=== PATIENT | female | born 1975 | race Two or more races ===

== ENCOUNTER 2017-06-08 16:36 | Inpatient (IN) | payer MEDICAID ==
[~2017-06-08] VITALS: Ht 163.8 cm; Wt 70.5 kg
--- NOTE | ~2017-06-08 | CATH ---
Cardiac Diagnostic Report Demographics Patient Name ARMIN Mariee Gender Female Date of 1975 Age 41 year(s) Patient Number [id number] Date of Study 06/08/2017 Visit Number [id number] Room Number G6227 [place] [id number] Ht 162.56 cm Wt 72.58 kg Referring Efstratiou Primary Physician Physician Terese Schaefer MD Performing Efstratiou Secondary Physician Physician Terese Schaefer MD Diagnostic Efstratiou Assisting Physician Physician Terese Schaefer MD Interventional Physician Eap Specialist Physician Findings and Conclusions Diagnostic Findings and Conclusion non critical 3 vessel disease Diagnostic Recommendations medical management for cardiomyopathy diagnosed by echocardiogram Procedure Description The patient was brought to the diagnostic cardiac catheterization-EP laboratory in the fasting, non-sedated state. Informed consent was obtained in the written and verbal form after the risks and benefits were explained. The patient had no further questions and agreed to proceed. The planned puncture-incision site(s) were shaved and prepped with ChloraPrep and draped in the usual sterile manner. Conscious sedation, supplemental oxygen, and pain control medications were delivered by a registered nurse under physician guidance. Surface ECG rhythm, blood pressure measurement, and pulse oximetry were monitored throughout the procedure. Arterial access. The access site was infiltrated with lidocaine. The vessel was entered with the Seldinger technique. A sheath was advanced into the vessel and used for catheter placement. Selective left coronary angiography. A catheter was advanced into the left coronary vessel ostium under Fluoroscopic guidance. Contrast was injected by hand. Images were obtained in multiple projections. Selective right coronary angiography. A catheter was advanced into the right coronary vessel ostium under fluoroscopic guidance. Contrast was injected by hand. Images were obtained in multiple projections. Left heart catheterization. A catheter was advanced across the aortic valve to the left ventricle under fluoroscopic guidance. Resting hemodynamics were obtained. Arterial artery hemostasis was achieved. The patient was transferred to a regular nursing floor via cart accompanied by a nurse. The patient left the laboratory in stable condition. Diagnostic Cath Status: Emergency Procedure Procedure Type Diagnostic procedure:Angiography:, Coronary Angios w/[facility] Indications: Chest pain. The procedure was explained in detail to the patient. Risks, complications and alternative treatments were reviewed. Written consent was obtained. Medications Reviewed with Patient prior to Procedure. Angiographic Findings Dominance: Right Cardiac Arteries and Lesion Findings LMCA: Abnormal. LAD: Abnormal.20% ostial Diag 20% ostial Lesion on Prox LAD: Ostial.20% stenosis . Lesion on 1st Diag: Ostial.20% stenosis . LCx: Abnormal.20% ostial 20% distal OM patent Lesion on Prox CX: Ostial.20% stenosis . Lesion on Dist CX: Distal subsection.20% stenosis . RCA: Abnormal.20% mid Lesion on Prox RCA: Mid subsection.20% stenosis . Coronary Tree Procedure Data Procedure Date Date: 06/08/2017Start: 08:48 PM Entry Locations - Retrograde Percutaneous access was performed through the Right Radial artery (Primary location). A 6 Fr sheath was inserted. Hemostasis was successfully obtained using Mechanical Compression. Closure Comments: 10 cc air in r band by Carla. Procedure Medications Order and Administration + + +-------+-------+ !Time !Medication !Dosage !Route ! + + +-------+-------+ !06/08/2017 !Fentanyl !50 mcg !I.V. ! !08:47 PM ! ! ! ! + + +-------+-------+ !06/08/2017 !Versed !1 mg !I.V. ! !08:47 PM ! ! ! ! + + +-------+-------+ !06/08/2017 !PAE Radial Cocktail: Heparin 5000 units, ! !I.A. ! !08:52 PM !Nitroglycerin 200mcg, Verapamil 3 mg ! ! ! ! !(ACC_3) ! ! ! + + +-------+-------+ Devices Used - A6 Fr. BS JR 4 Diag. Catheterwas used for:Right coronary angiography. - A6 Fr. BS JL 3.5 Diag. Catheterwas used for:Left coronary angiography. Contrast Material - Isovue 78003 ml Fluoroscopy Time: Diagnostic: 1:54 minutes. Total: 1:54 minutes. Fluoroscopy Dose: Diagnostic: 342 mGy. Total: 342 mGy. Estimated Blood Loss: 10 ml. Medical History Allergies - No known allergies. Risk Factors The patient risk factors include:physical activity, last creatinine: 1.1 mg/dl, creatinine clearance: 77.11 ml/min and Current/Recent(w/in 1 year) tobacco use. Admission Data Admission Date: 06/08/2017 Admission Time: 08:10 PM Admit Source: Emergency department Insurance Payors: None. Clinical Evaluation Leading to Procedure - The patient's CAD presentation was assessed as: Non-STEMI. - The patient's anginal syndrome during the past two weeks was assessed as: Class IV according to the [place] Cardiovascular Society Classification System (CCS). - The patient has been in a state of heart failure within the past two weeks. - The patient's heart failure status was assessed as NYHA Class III, with CHF symptoms of CHAPMAN. - The reason for the patient's laborer visit is evaluation of cardiomyopathy and/or evaluation of left ventricular systolic dysfunction. Snapshots Hemodynamics Condition: Rest O2 Consumption: Estimated: 206.15Heart Rate: 108 bpm Pressures (mmHg) +-----+ + !Site !Pressure ! +-----+ + !LV !119/16 ,22 ! +-----+ + !LV !118/15 ,21 ! +-----+ + !AO !116/90 (102) ! +-----+ + !LV !117/16 ,28 ! +-----+ + !AO !115/87 (101) ! +-----+ + Valve Gradients and Areas + +---------+---------+---------+ +---------+ + !Valve !Peak !Mean !Area !Index !Flow !Source ! + +---------+---------+---------+ +---------+ + !Aortic !2 !0 ! ! ! ! ! + +---------+---------+---------+ +---------+ + !Aortic !2 !0 ! ! ! ! ! + +---------+---------+---------+ +---------+ + Shunts Oxygen Values O2 Capacity 194.48 O2 Consumption 206.15 Signatures dtt: Jony Duque dtd: 06/08/178 Physician Self Edit
--- NOTE | ~2017-06-08 | DS ---
PATIENT'S NAME: LIS FUNEZ [facility] AGE: 41 Y [address] ROOM: [address] [address] LOCATION: [facility] ADMIT DATE: 06/08/2017 Discharge Summary DISCHARGE DATE: 06/14/2017 FAMILY PHYSICIAN: PHYSICIAN, NO ATTENDING PHYSICIAN: Gwen Fernandes ADMITTING DIAGNOSIS: Chest pain. DISCHARGE DIAGNOSIS: Nonischemic cardiomyopathy. SECONDARY DIAGNOSES: 1. Rectal cancer on chemo and radiation. 2. Tachycardic. 3. Anxiety. 4. Tobacco use. 5. History of multiple illicit drug abuse. PROCEDURE: 1. Echocardiogram that shows 15% to 20% ejection fraction. 2. Coronary angiogram that shows nonobstructive coronary artery disease with 20% lesion. CONSULTATION: Cardiology and Oncologist. HISTORY OF PRESENT ILLNESS: The patient is a 41-year-old female with recently diagnosed rectal carcinoma on chemo radiation. She was started on chemo with 5-FU on Monday, who presents here with chest pain and heart palpitation. The patient was started on 5-FU and chemo radiation for her rectal cancer. The patient follows Dr. Anderson and Dr. Robledo. However, the patient was given some hydration at cancer center earlier today and was noted to have substernal pressure-like chest pain. The patient was sent to emergency room on for further evaluation. In the emergency department, the patient had a CT that was negative for PE. However, troponin was noted to be elevated and the patient was taken to coronary angiogram and had a coronary angiogram done by Dr. Frey. Angiogram was unremarkable. Echo showed ejection fraction 15-20%. HOSPITAL COURSE: The patient was restarted on 5-FU treatment and also continued on core measure nonischemic cardiomyopathy treatment. The patient however was noted to have hypotension secondary to aggressive beta-jamir use. Beta-jamir was discontinued. The patient was given IV fluids with improvement of blood pressure. However, systolic blood pressure was still in the 80s and the 70s. The patient was transferred to ICU, was started on Levophed drip with adequate improvement of her blood pressure. Levophed was weaned off with adequate improvement of blood pressure. The patient continued to be tachycardic. The patient was started initially on digoxin and was given PATIENT'S NAME: LIS FUNEZ [facility] AGE: 41 Y [address] ROOM: [id number] [place], [place] [address] LOCATION: [facility] ADMIT DATE: 06/08/2017 Discharge Summary DISCHARGE DATE: 06/14/2017 FAMILY PHYSICIAN: PHYSICIAN, NO ATTENDING PHYSICIAN: Gwen Fernandes a loading dose of digoxin IV and continued on oral digoxin. During her stay, blood pressure was improved. The patient was restarted on low dose of Coreg 3.125 mg p.o. b.i.d. with adequate heart rate control and blood pressure. The patient was also started on ivabradine 5 mg p.o. b.i.d. The patient during stay also had radiation treatment. Discussion was made with oncologist, Dr. Mcdaniel, if 5-FU as a contributor for nonischemic cardiomyopathy. This to be revaluated by Dr. Anderson as an outpatient. The patient was seen by Physical Therapy and Occupational Therapy. The patient's function improved significantly and was stable on discharge. CONDITION: Stable. DISPOSITION: Home. DISCHARGE MEDICATION: Please see MAR. DISCHARGE INSTRUCTION: If the patient is having chest pain shortness of breath, fever, chills, productive cough, and erythema around PICC line, to go to the emergency department. FOLLOWUP: Follow up with Cardiology, Oncology, radiation oncologist, and primary care physician. PHYSICAL EXAMINATION: VITAL SIGNS: Stable. GENERAL APPEARANCE: The patient is alert and awake, in no acute distress. CHEST: Clear to auscultation bilaterally. HEART: Regular rate and rhythm. No murmurs, rubs, or gallops. ABDOMEN: Soft, nontender, and nondistended. Bowel sounds present. SKIN: Warm to touch. EXTREMITIES: Lower extremity, no edema. Greater than 30 minutes were spent on discharge planning. MD ANAHI RAMIREZ/annita /[id number] d: 06/15/17 1309 t: 06/16/17 1312, DISCHARGE SUMMARY
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
--- NOTE | ~2017-06-08 | ECHO ---
Transthoracic Echocardiography Report (TTE) Demographics Patient Name LIS FUNEZ Date of Study 06/08/2017 Y Patient Number [id number] Visit Number [id number] Date of 1975 Room Number G6399 Gender Female Number Age 41 year(s) Referring Efe Chua Account Administrator Dennise Robins RVT Physician TORRES Jenkins MD Physician Interpreting Neto Gudino Supervisor Central Supply Physician A Supervising Ordering Herb Jenkins MD, MD/MLP Physician Nurse Stress Dispatcher Refinery Conclusions Contractility Score Summary Global Left Ventricular Hypokinesis was noted. Summary The estimated left ventricular ejection fraction is 15-20%. Definity images are 84-101 Mild concentric left ventricular hypertrophy. Mildly reduced right ventricular function. Mild mitral regurgitation by color Doppler. The aortic valve was not well imaged. Mild tricuspid regurgitation by color Doppler. Trivial pulmonic valve regurgitation by color Doppler. Procedure Type of Study TTE procedure:2D Echocardiogram, Echo with Contrast. Procedure Date Date: 06/08/2017 Start: 06:53 PM Study Location: ER Technical Quality: Adequate visualization Indications:Chest pain. Appropriate Use Criteria: 9 Patient Status: STAT HR: 95 bpm BP: 129/92 mmHg Allergies - No known allergies. M-Mode/2D Measurements LV Diastolic Dimension: 4.19 cm LV Systolic Dimension: 3.69 cm LV Septum Diastolic: 1.29 cm LV PW Diastolic: 1.19 cm AO Root Dimension: 2.3 cm Cardiac Output: 3.13 l/min AV Cusp Separation: 2 cm RV Diastolic Dimension: 1.76 cm LVOT: 2 cm LVOT VTI: 10.5 cm RV Base: 2.48 cm LV Stroke volume: 32.97 ml RV Length: 5.4 cm TAPSE: 1.05 cm TDI-S': 13.9 cm/s Doppler Measurements AV Peak Velocity: 1.06 m/s MV Peak E-Wave: 0.89 m/s AV Peak Gradient: 4.49 mmHg AV Mean Gradient: 2 mmHg MV P1/2t: 45 msec LVOT Peak Velocity: 0.57 m/s TR Velocity:2.34 m/s PV Peak Velocity: 0.48 m/s TR Gradient:21.9 mmHg PV Peak Gradient: 0.91 mmHg E' Septal Velocity: 0.12 m/s E' Lateral Velocity: 0.12 m/s Findings Left Ventricle Mild concentric left ventricular hypertrophy. Incompletely studied diastolic function. Right Ventricle Mildly reduced right ventricular function. Left Atrium Normal left atrial size. Right Atrium IVC measures 1.5 cm with partial inspiratory collapse. Mitral Valve Mild mitral regurgitation by color Doppler. Aortic Valve The aortic valve was not well imaged. Tricuspid Valve Mild tricuspid regurgitation by color Doppler. Pulmonic Valve Trivial pulmonic valve regurgitation by color Doppler. Pericardial Effusion No evidence of pericardial effusion. Miscellaneous Visualized portions of the aortic root and ascending aorta appear normal in size. Pleural Effusion No evidence of pleural effusion. Contractility Score LV regional wall motion:(0-Non visualized 1-Normal 2-Hypokinesis 3-Akinesis 4-Dyskinesis 5-Aneurysm) Signature dtt: Jony Duque dtd: 06/08/17 [id number] Physician Self Edit
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
--- NOTE | ~2017-06-08 | ER ---
PATIENT'S NAME: LIS FUNEZ [facility] AGE: 41 Y [address] ROOM: [address] [place], [place] [address] LOCATION: GPCU ADMIT DATE: 06/08/2017 ER/Outpatient Report DISCHARGE DATE: FAMILY PHYSICIAN: PHYSICIAN, NO ATTENDING PHYSICIAN: Jony Duque ADDENDUM TO SOHAM WOODRUFF'S DICTATION: HISTORY OF PRESENT ILLNESS: The patient is a 41-year-old female, who presents to the emergency department today and was initially seen by TORRES Cagle, in conjunction with Dr. Estevez. I was asked to see the patient upon my arrival at shift change. The patient does have anorectal cancer. She is currently undergoing radiation and chemotherapy. The patient did have chest pain. I did see and evaluate the patient. She reports this pain upon my evaluation is in the center of her chest. It is a dull type pain. It started about 3:30 p.m. today. She continues to have pain now 5/10 to 6/10 in severity. Denies any shortness of breath. She did get diaphoretic at 3:30 with initial onset of the pain. Denies any fevers, does have some nausea. No vomiting. No radiation of the pain. Nothing makes it worse. Nothing makes it better. Denies any history of heart catheterization or stress test in the past. The patient did have radiation treatment this morning. She is a long-time smoker 26 years. She does use methamphetamine, last use was a week ago. She also uses marijuana. LABORATORY DATA AND X-RAYS: The patient's EKGs are reviewed by myself. EKG at 1646 hours shows sinus tachycardia with a rate of 121, normal axis, normal intervals. There is some very subtle ST elevation in V5, V6. It is less than 1 mm. Repeat EKG is performed at 1806 hours and 1812 hours, it continues to show the subtle ST elevation. There is some increased size of the T wave. With these EKGs, we did contact Dr. Duque with the Cardiology Service. He has seen and evaluated the patient down here in the emergency department. He has ordered a stat echocardiogram, which does show global hypokinesis with an EF of 20% to 25%. The patient's laboratory analysis is reviewed. D-dimer is elevated at 0.83. CMP is unremarkable except for glucose 252. LFTs are normal. Magnesium is normal. CK and CK-MB are normal. Troponin 0.068. CBC is unremarkable. Coags are normal. Repeat cardiac enzymes: CK is normal, CK-MB is normal, troponin 0.110. CT scan of the chest, PE study is obtained. I have discussed results with the radiologist shows no evidence of PE. Lungs are clear with no acute infiltrate. Two-view chest x-ray shows no acute process. EMERGENCY DEPARTMENT COURSE: The patient was given Lopressor 5 mg. She was also given 4 tabs of aspirin orally. We have discussed the case again with Dr. Duque. He will proceed to the heart catheterization lab for further evaluation of the patient's PATIENT'S NAME: LIS FUNEZ [facility] AGE: 41 Y [address] ROOM: [place] [address] [facility] ADMIT DATE: 06/08/2017 ER/Outpatient Report DISCHARGE DATE: FAMILY PHYSICIAN: PHYSICIAN, NO ATTENDING PHYSICIAN: Jony Duque. We also did discuss the case with Dr. Hernández with the Hospitalist Service and will see the patient as well. DISPOSITION: The patient is admitted under the care of Dr. Duque in stable condition. DO ISRAEL IVERSON/annita /[id number] d: 06/09/17 0001 t: 06/16/17 1110, OUTPATIENT REPORT
--- NOTE | ~2017-06-08 | ER ---
PATIENT'S NAME: LIS FUNEZ [facility] AGE: 41 Y [address] ROOM: [place] [address] LOCATION: GPCU ADMIT DATE: 06/08/2017 ER/Outpatient Report DISCHARGE DATE: FAMILY PHYSICIAN: PHYSICIAN, NO ATTENDING PHYSICIAN: Jony Duque Time of Arrival: 1636 hours. Time of Evaluation: 1638 hours. CHIEF COMPLAINT: Chest pain, fatigue, dizziness. HISTORY OF PRESENT ILLNESS: This is a 41-year-old female, who presents to the ER, who states she started having some chest pain from 3:30 this afternoon. The patient states she has a history of anorectal cancer, in which she is receiving chemotherapy through a PICC line and a radiation treatment. The patient was evaluated at the cancer center today and did receive 2 L of IV fluids. She states when she went home, she took a nap and when she awoke she started having this chest discomfort. She describes her chest pain as a dull aching pain in the center of her chest. It makes her feel nauseated. She has had weakness and diaphoresis with this but no shortness of breath and no vomiting. She states her pain does not radiate anywhere. She states that she has had no fevers at home. She states that she has never had anything like this before in the past. She states that nothing really makes it better and nothing really makes it worse. She states that she generally just does not feel well. ALLERGIES: NO KNOWN ALLERGIES. MEDICATIONS: Please see medication list in nurse's notes. PAST MEDICAL HISTORY: Anorectal cancer, currently receiving radiation, chemotherapy. She has had a cholecystectomy. Her tubes tied. SOCIAL HISTORY: She smokes 5 to 6 cigarettes a day for the past 26 years. She drinks alcohol rarely. Smokes marijuana every other day and has a history of methamphetamine use, last use was one week ago. REVIEW OF SYSTEMS: All systems reviewed and were negative with the exception of those discussed in the HPI. PATIENT'S NAME: LIS FUNEZ [facility] AGE: 41 Y [address] ROOM: [place] [address] LOCATION: GPCU ADMIT DATE: 06/08/2017 ER/Outpatient Report DISCHARGE DATE: FAMILY PHYSICIAN: PHYSICIAN, NO ATTENDING PHYSICIAN: Jony Duque PHYSICAL EXAMINATION: VITAL SIGNS: Height 5 feet 4-1/2 inches stated, weight 73 kg taken, blood pressure is 130/92, pulse 122, respirations 20, temperature 97 degrees tympanically, and saturations 99% on room air. Marilee Coma Score is 15. GENERAL: An alert, slightly anxious appearing 41-year-old female, in mild distress. HEENT: Head: Normocephalic. She does display moist mucous membranes. Eyes: Pupils are equal and reactive to light. NECK: Supple. No lymphadenopathy. LUNGS: Clear to auscultation bilaterally. HEART: Tachycardic, normal rhythm. ABDOMEN: Soft. She has slight tenderness in her lower quadrants with palpation of her abdomen. No guarding. No rebound tenderness. She has good bowel sounds throughout. EXTREMITIES: No clubbing or cyanosis. She has full range of motion of all limbs. NEURO: Cranial nerves 2 through 12 grossly intact. Gait is steady without assistance. SKIN: Warm, dry, and intact. She does have a PICC line placed in her right upper extremity. I did turn the patient's care over to Dr. Jose due to the complexity of the patient. Please see Dr. Jose's dictation for the remainder of the patient's visit. The patient understands and agrees with care. SOHAM WOODRUFF PA-C FOR MD LEONIDES VICENTE/annita /[id number] d: 06/08/17 2311 t: 06/20/17 0650, OUTPATIENT REPORT
[2017-06-08 17:15] LABS: HEMATOCRIT 42.8 % (33.0-46.0); HEMOGLOBIN 14.3 g/dL (10.0-15.0); MCH 30.4 pg (27.0-34.0); MCHC 33.4 gm/dL (32.0-36.5); MCV 90.9 fl (83.0-98.0); MPV 8.8 fl (9.4-12.4); PLATELET COUNT 284 K/uL (150-450); RBC 4.71 M/uL (3.50-5.50); RDW-CV 12.2 % (11.9-14.6); WBC 7.5 K/uL (4.0-11.0)
[2017-06-08 17:27] LABS: INR - (THERAPEUTIC) 0.95 (0.92-1.07); PTT 26 SECONDS (25-32)
[2017-06-08 17:34] LABS: ANION GAP 12.7 (10.0-19.0); CALCIUM 7.9 mg/dL (8.5-10.5); CREATININE 1.1 mg/dL (0.5-1.1); MAGNESIUM 1.9 mg/dL (1.8-2.6); POTASSIUM 3.7 mMol/L (3.7-5.1); TOTAL BILIRUBIN 0.4 mg/dL (0.0-1.5); TOTAL PROTEIN 6.8 g/dL (6.0-8.4)
[2017-06-08 17:45] LABS: ABSOLUTE NEUTROPHIL CT (ANC) 6.9 K/uL (1.8-7.8); BANDED NEUTROPHIL # 0.4 K/uL (0.0-0.1); BANDED NEUTROPHILS % 5 %; LYMPHOCYTE # 0.5 K/uL (0.8-4.0); LYMPHOCYTE % 6 %; MONOCYTE # 0.1 K/uL (0.0-1.0); SEGMENTED NEUTROPHIL # 6.5 K/uL (1.8-7.8); SEGMENTED NEUTROPHIL % 87 %
[2017-06-08] MEDS ORDERED: COMPAZINE10 MG PO (21:45)
[2017-06-08] MEDS ORDERED: [UNRECOGNIZED DRUG - OTHER] (21:47)
--- NOTE | 2017-06-08 22:20 | NUR ---
Patient was feeling sick this afternoon went to ER. Elevated troponin. Patient taken down to prosthetic lab technician. R) radial approach, no interventions needed. Patient arrived to PCU at 2114. R) upper arm PICC present on admission with chemo infusion running for rectal cancer. L) hand IV with NS @ 100ml/hr for 500ml. R) radial site commpressed with band. Patient drowsy on arrival. Patient is oriented x3. Calm and cooperative.
--- NOTE | 2017-06-09 05:49 | NUR ---
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 VSS, HR 100's, SBP 130-150's. On RA. Up SBA. No complaints of pain. R) upper arm PICC in place with chemo medication infusing. R) radial cath site, no intervention, R band removed wtih no complications. Possible home today.
[2017-06-09 07:10] LABS: BASOPHIL % 0.2 %; HEMATOCRIT 42.9 % (33.0-46.0); HEMOGLOBIN 14.8 g/dL (10.0-15.0); IMMATURE GRANULOCYTE % 0.3 %; LYMPHOCYTE # 2.3 K/uL (0.8-4.0); LYMPHOCYTE % 17.5 %; MCH 30.9 pg (27.0-34.0); MCHC 34.5 gm/dL (32.0-36.5); MCV 89.6 fl (83.0-98.0); MONOCYTE # 0.5 K/uL (0.0-1.0); MONOCYTE % 3.7 %; MPV 8.8 fl (9.4-12.4); NEUTROPHIL # (ANC) 10.4 K/uL (1.8-7.8); NEUTROPHIL % 78.3 %; NRBC % 0 /100WBC (0-0.00); RBC 4.79 M/uL (3.50-5.50); RDW-CV 12.4 % (11.9-14.6); WBC 13.3 K/uL (4.0-11.0)
[2017-06-09 07:11] LABS: PLATELET COUNT 367 K/uL (150-450)
[2017-06-09 07:39] LABS: ANION GAP 12.9 (10.0-19.0); CALCIUM 8.6 mg/dL (8.5-10.5); POTASSIUM 3.9 mMol/L (3.7-5.1)
[2017-06-09 10:05] LABS: BARBITURATE NEGATIVE (NEGATIVE); COCAINE NEGATIVE (NEGATIVE); OPIATES NEGATIVE (NEGATIVE)
[2017-06-09 10:12] LABS: AMPHETAMINE NEGATIVE (NEGATIVE)
--- NOTE | 2017-06-09 12:17 | NUR ---
Introduced self and CM to Christopher. Christopher tells me that she lives at home in [place] with her , [place]. She plans on returning home when she is cleared to do so. She isn't established with a PCP but would like to be set up with someone at [facility] if she could. I left a note on her chart to make sure a new patient follow up appt. was made with someone at [facility] was set up for her when she went to dismiss. She was listed as self pay on my sheet, we talked about this and I made sure that she has the financial assistance application. Told her to fill it out upon dismissal. Inquired if she had applied for Medicaid at all. She says that she did, but her makes to much money so she doesn't qualify for it. Updated Angela in the [facility] dept to this so she could follow up with Christopher on this and see if she could help her anymore. Christopher says that her will pick her up when she goes. She manages her own medications at baseline, says that she is only on one for her nausea due to her chemo treatments. Gets it filled at [facility] and will get her new medications filled at [facility] if she needs to. Reports that her works and pays for her medications if she needs them. Christopher [facility] and has just recently started them. Tells me that she will have to do radiation as well down the road. Denies any needs for DME or HHC upon dismissal. Plan is for her to return home when she is ready to do so. No other questions, needs or concerns. Left my name on her whiteboard for any further questions down the road. CM to continue to follow and assist.
--- NOTE | 2017-06-09 14:40 | NUR ---
AT 1330 THE PATIENT HAD GOTTEN UP TO THE BR TO TRY TO HAVE A BM AND BECAME DIZZY AND DIAPHORETIC; SHE WAS RETURNED TO THE RECLINER AND FOUND TO HAVE SBPS IN THE 70S AFTER HER DOSE OF COREG AT 1200. SBPS HAD BEEN 110S-150S AND HR'S 130S T/O THE SHIFT PRIOR TO THIS EPISODE. BS CHECKED AND WAS 171. DR. REID NOTIFIED AND ORDER FOR 300 ML NS BOLUS; DR. MEDINA WAS ALSO NOTIFIED AND CAME TO THE BEDSIDE AND GAVE ADDITIONAL ORDER FOR 200 ML NS BOLUS AND TO KEEP NS WIDE OPEN. AT 1345 MISSY BELTRAN RN CAME UP AND D/C'D THE CHEMO MED 5 F U FROM THE PATIENT'S PICC LINE PER DR. FISHER'S ORDER. A RAPID RESPONSE WAS CALLED AT 1400 D/T SBPS WENT INTO THE 60S AFTER NS BOLUSES INFUSED AND PT HAD DECREASED LOC. ORDER FOR DOPAMINE GTT AT 10 MCG/KG/MIN WAS RECIEVED BY MD AT BEDSIDE. DOPAMINE GTT INCREASED TO 15 MCG/KG/MIN AT 1410 AND TO 20 MCG/KG/MIN AT [address] MEDINA'S VERBAL ORDER AT BEDSIDE. LEVOPHED GTT WAS ALSO STARTED AT 12 MCGS AT BEDSIDE PRIOR TO TX TO THE ICU; SBPS RETURNED TO 90S-110S PRIOR TO TX TO THE ICU. UPDATED THE PATIENT'S MOTHER IN LAW SOFI FUNEZ IN THE ICU WAITING ROOM. REPORT WAS GIVEN TO DIOR CORTES.
[2017-06-09 20:34] LABS: HEMATOCRIT 42.8 % (33.0-46.0); HEMOGLOBIN 14.6 g/dL (10.0-15.0)
--- NOTE | 2017-06-10 05:07 | NUR ---
Significant Event: Patient A/O, more alert tonight, denies pain, numbness or tingling. Restless but cooperative. Remains sinus tachy (120s-140s), Digoxin given x1 dose, no relief. Remains on Levophed gtt, titrated often, see flowsheet for details. Telemetry notified this nurse of a 7 beat run of VT, Dr Hernández also notified, no new orders. Temp of 100.3, Tylenol given. Cooper drains adequate amounts of clear yellow urine. Cardiac prudent diet, poor appetite. Follow up: Titrate Levophed drip off, keeping SBP >90
[2017-06-10 07:39] LABS: BASOPHIL # 0.1 K/uL (0.0-0.2); BASOPHIL % 0.4 %; EOSINOPHIL % 0.1 %; HEMATOCRIT 42.9 % (33.0-46.0); HEMOGLOBIN 14.7 g/dL (10.0-15.0); IMMATURE GRANULOCYTE # 0.1 K/uL (0.0-0.3); IMMATURE GRANULOCYTE % 0.6 %; LYMPHOCYTE # 1.8 K/uL (0.8-4.0); LYMPHOCYTE % 13.9 %; MCH 30.8 pg (27.0-34.0); MCHC 34.3 gm/dL (32.0-36.5); MCV 89.9 fl (83.0-98.0); MONOCYTE # 0.3 K/uL (0.0-1.0); MONOCYTE % 1.9 %; MPV 9.5 fl (9.4-12.4); NEUTROPHIL # (ANC) 10.9 K/uL (1.8-7.8); NEUTROPHIL % 83.1 %; NRBC % 0 /100WBC (0-0.00); PLATELET COUNT 356 K/uL (150-450); RBC 4.77 M/uL (3.50-5.50); RDW-CV 12.1 % (11.9-14.6); WBC 13.1 K/uL (4.0-11.0)
[2017-06-10 07:44] LABS: ALBUMIN 2.9 gm/dL (3.5-5.0); ALK PHOS 64 IU/L (33-138); ALT 27 IU/L (12-78); ANION GAP 10.6 (10.0-19.0); AST 14 IU/L (10-40); BLOOD UREA NITROGEN 14 mg/dL (6-24); CALCIUM 8.2 mg/dL (8.5-10.5); CHLORIDE 107 mMol/L (96-110); CO2 27 mMol/L (22-32); CREATININE 0.8 mg/dL (0.5-1.1); POTASSIUM 3.6 mMol/L (3.7-5.1); SODIUM 141 mMol/L (135-145); TOTAL BILIRUBIN 1.1 mg/dL (0.0-1.5); TOTAL PROTEIN 6.7 g/dL (6.0-8.4)
--- NOTE | 2017-06-10 14:46 | NUR ---
Significant Event: PT ALERT AND ORIENTED X3. HAS BEEN SLEEPY THROUGHOUT THE DAY, BUT AWAKENS EASILY. DENIES ANY PAIN OR CHEST PAIN. ORDER TO KEEP SBP GREATER THAN 90. IV LEVOPHED DRIP CONTINUES; SEE FLOWSHEET FOR TITRATIONS. TACHYCARDIA WITH RATES IN THE LOW 100'S-120'S. MD'S ARE AWARE OF HEARTRATES. AFEBRILE. ON ROOM AIR. ESPINAL PATENT, DRAINING YELLOW URINE. SINGLE LUMEN PICC LINE TO R)UPPER ARM INTACT. FAIR APPETITE; CARDIAC DIET WITH LOW SODIUM. BAG BATH GIVEN THIS AM. TRANSFERS WITH STAND-BY ASSIST. POTASSIUM LEVEL WAS 3.6 THIS AM; 40 MEQ PO KCL GIVEN X1. HAS BEEN UP IN THE CHAIR MOST OF THE SHIFT. Follow up: WEAN LEVOPHED DRIP
--- NOTE | 2017-06-11 02:15 | NUR ---
Significant Event: A&OX3. Equal strength throughout. Up SBA. Pupils equal and reactive. On tele runs ST at times HR 90s to low 110s. On Levo drip paused at 0200. Goal is to keep SBP >90. RA lungs clear. Last BM 06/10. Cardiac diet. Cooper urine light yellow good urine output. Bruising to abdomin from lovenox shots. PICC line single lumen flushes well good blood return. Had some nausea during the night compazine given. Follow up:
[2017-06-11 04:15] LABS: BASOPHIL % 0.4 %; EOSINOPHIL # 0.1 K/uL (0.0-0.5); EOSINOPHIL % 0.7 %; HEMOGLOBIN 15.7 g/dL (10.0-15.0); IMMATURE GRANULOCYTE # 0.1 K/uL (0.0-0.3); IMMATURE GRANULOCYTE % 0.7 %; LYMPHOCYTE # 1.1 K/uL (0.8-4.0); LYMPHOCYTE % 16.7 %; MCH 31.3 pg (27.0-34.0); MCHC 34.9 gm/dL (32.0-36.5); MCV 89.6 fl (83.0-98.0); MONOCYTE # 0.1 K/uL (0.0-1.0); MONOCYTE % 1.6 %; MPV 9.5 fl (9.4-12.4); NEUTROPHIL # (ANC) 5.4 K/uL (1.8-7.8); NEUTROPHIL % 79.9 %; NRBC % 0 /100WBC (0-0.00); PLATELET COUNT 346 K/uL (150-450); RBC 5.02 M/uL (3.50-5.50); RDW-CV 11.9 % (11.9-14.6); WBC 6.7 K/uL (4.0-11.0)
[2017-06-11 04:17] LABS: ALBUMIN 3.1 gm/dL (3.5-5.0); ANION GAP 11.1 (10.0-19.0); CALCIUM 8.7 mg/dL (8.5-10.5); CREATININE 0.9 mg/dL (0.5-1.1); POTASSIUM 4.1 mMol/L (3.7-5.1); TOTAL PROTEIN 7.5 g/dL (6.0-8.4)
[2017-06-11 04:21] LABS: TOTAL BILIRUBIN 0.7 mg/dL (0.0-1.5)
--- NOTE | 2017-06-11 16:55 | NUR ---
Significant Event:PT IS AAOX3. NO C/O NUMBNESS, TINGLING, SOB, OR CHEST PAIN. LUNG SOUNDS ARE CLEAR IN UPPERS AND CLEAR AND DIMINISHED IN LOWER LOBES. SBP 100-120'S. HR 105-120'S. ACTIVE BS. NO BM THIS SHIFT. DOES HAVE SORE ON HER INNER LEFT CHEEK IN HER MOUTH. STARTED MAGIC MOUTHWASH. PICC TO R) UPPER ARM SL'D. UP SBA. SHOWERED TODAY. Follow up:PT ANXIOUS ABOUT HAVING CHEMO. WANTS A DIFFERENT TYPE
--- NOTE | 2017-06-11 23:26 | NUR ---
Significant Event: A&Ox3. Equal strength throughout. Fatigued. Up SBA pt states she is able to move without feeling dizzy at all. On tele runs ST mid 110s to upper 120s has been in 130s but has not sustained 130s long. SBP in 110s and 120s. Complained of some aggitation and anxiety at start of night pt stated she just wasn't able to get comfortable and was just frusterated xanax was given, pt then seemed to be able to rest quitely. RA lungs clear. Last BM 06/10. Cardiac diet. Cooper possibly D/C today. Bruising to abdomin from lovenox shots. Pt has sores in mouth on magic mouthwash 4xs a day. PICC line to R) arm single lumen flushes well with good blood return. Follow up: Radiation and chemo therapy scheduled for today 06/11 pt states she does not want to do more chemo, oil truck driver mentioned that he thought that might be what caused her heart complications. Pt insturcted to talk to Dr. Mcdaniel about it today. Discharge home Monday or Monday.
--- NOTE | 2017-06-12 14:29 | NUR ---
Significant Event:PT IS AAOX3. NO C/O NUMBNESS OR TINGLING. CLEAR TO CLEAR AND DIMINISHED LUNG SOUNDS. ON RA. ACTIVE BS. REMOVED ESPINAL AT 0925. HAS VOIDED SINCE. NO C/O PAIN EXCEPT FOR HER MOUTH SORES WHICH THE MAGIC MOUTH WASH IS HELPING. HAD RADIATION TODAY. Follow up:HOME TOMORROW OR MONDAY
--- NOTE | 2017-06-12 16:20 | NUR ---
1030 During RN huddle this morning DIOR Maxwell tells me that Christopher might have to go home on the medication, Corlanor 5 mg BID upon dismissal and it was a pretty clostly med. so she would like for me to see her about this. I let Alissa know that I would do that this afternoon. I also reviewed the chart and saw that had wrote that Christopher might need a Lifevest upon dismissal as well. I did ask Alissa to call and clarify that she would for sure have to go home with that as she was listed as self pay. Alissa did call and clarify that Christopher would need the Lifevest upon dismissal. Gave Alissa the number for [employer] Rep. Poli Church, to call and have him come up and see Christopher about the Lifevest. Alissa states she will call Poli and have him come up and see Christopher later today or tomorrow. In the meantime, I phoned over to [facility], was told that the Corlanor 5MG BID would be $485.37 for a months supply. I called over to Sue at [facility], [phone], left a VM with her to see if she had any medications coupons for this medication or if she had any way to help out Christopher with the cost of this medication. No call back from her at this point. I went in and talked with Christopher, updated her to all the above, she states that she isn't able to pay for those medications and probably not for the Lifevest either as she isn't working and doens't know if her can pay for it out of pocket either. Let her know that I would keep working on trying to find a cheaper cost to get her medications at and talk with my rug cleaning supervisor Jennifer about the LifeVest issue and then report back to her. She was in agreement with this plan. Christopher did say she would be compliant with the LifeVest if we were able to get the cost covered. Also told her I would talk with [facility] in [facility] to see if there was anything she could look into to try to help with why her Medicaid was denied or see what they could do to try to get it approved. Christopher was fine with this. I did talk with Angela about the above and she was going to look into it. CM to continue to follow and assist.
--- NOTE | 2017-06-13 03:42 | NUR ---
Pt A&Ox4. VSS on RA, SBPs 110s-130s, HRs 90s-low 100s throughout shift. Denies any cardiac symptoms throughout shift. Up with SBA. Voiding sufficiently. Had radiation yesterday. Possible D/C to home today or tomorrow. Cooperative with cares.
[2017-06-13 04:51] LABS: BASOPHIL # 0.1 K/uL (0.0-0.2); BASOPHIL % 1.6 %; EOSINOPHIL # 0.4 K/uL (0.0-0.5); EOSINOPHIL % 8.8 %; HEMATOCRIT 44.4 % (33.0-46.0); IMMATURE GRANULOCYTE # 0.1 K/uL (0.0-0.3); IMMATURE GRANULOCYTE % 1.6 %; LYMPHOCYTE # 1.2 K/uL (0.8-4.0); LYMPHOCYTE % 26.2 %; MCH 30.1 pg (27.0-34.0); MCHC 33.8 gm/dL (32.0-36.5); MONOCYTE # 0.2 K/uL (0.0-1.0); MONOCYTE % 3.6 %; MPV 8.9 fl (9.4-12.4); NEUTROPHIL # (ANC) 2.6 K/uL (1.8-7.8); NEUTROPHIL % 58.2 %; NRBC % 0 /100WBC (0-0.00); PLATELET COUNT 354 K/uL (150-450); RBC 4.99 M/uL (3.50-5.50); RDW-CV 11.9 % (11.9-14.6); WBC 4.4 K/uL (4.0-11.0)
--- NOTE | 2017-06-13 10:48 | NUR ---
PT SCREENED D/T LOS. EST NEEDS: [id number] KCALS, 79-83 GM PROTEIN, 1 ML/KCAL FLUIDS. INTAKE ADEQUATE ON CARDIAC DIET. BMI WNL. NO NURITION-RELATED DIAGNOSIS IDENTIFIED. WILL F/U IN 7-10 DAYS.
--- NOTE | 2017-06-13 12:13 | NUR ---
[facility] with [facility] in [facility] she gave me paperwork for Christopher to fill out so she could help her with her Medicaid application. Took those up to Christopher, had her sign/fill them out. Gave them back to Angela who says she is going to try to get up to see her today. Also gave her Nitin' card as well so she could get ahold of her post dismissal. Talked with Christopher about her Corlanor costs, she says she won't be able to cover them. Told her I would call and get that figured out. In the meantime, I filled out a [employer] form for her and faxed it over to Arina at [facility] so they could try to get that covered for her. Left a copy of this on her chart as well. Christopher says that Poli from [facility] has not come and talked with her yet, but per her RN Vivien, he was going to come up this afternoon. After leaving her room, I called , explained to him that she was self pay and couldn't cover the cost of the Corlanor, he tells me to have [facility] if [facility]. Let him know that this has already been done, but it will take about a month before they can start to help. He says that he will call over to his clinic and talk with his RN to see if he can get some free samples for her to have upon dismissal to get her by for the time being. is out of town today, so he says to call his RN Natty at 2115 later this morning and get the samples from here. Told him I would do this. I later phoned over to Natty, 2115, she says that she has the samples ready to go, has 91 tablets for her to use as a sample to get her by. Let Natty know that I would be over later to pick them up and get them to Christopher. Will follow up with Poli ([facility]) this afternoon and also with my decorating supervisor Jennifer as we will most likely have to cover the cost of it as Christopher won't be able to. CM to continue to follow and assist. All the above was shared with Christopher so she is aware of things. I also made an appt with for 06/19 at 1330 for her so she could est. PCP with him upon dismissal. Left a card for her on her chart for dismissal, also wrote it on her dismissal orders as well.
--- NOTE | 2017-06-13 13:29 | NUR ---
Significant Event: Patient A/O x3. Denies N/T. Follows commands. Able to make needs known. Moves all extremities spontaneously. PERRLA. VSS. HRs 100s. Denies chest pressure or pain. Room air with sats in the mid-high 90s. LS clear throughout. Voids per bathroom. No BM this shift. BS active X4. Bruising to R) flank. Sore R) cheek. PICC ROMANA. SLL. Flushes well with good blood return. Dressing changed. Up ad oma/SBA. Denies pain except sore in mouth Magic mouthwash already being given. Patient to Cancer center today for radiation. Pleasant and cooperative with cares. Follow up: Life vest fitting; discharge tomorrow?
--- NOTE | 2017-06-14 05:17 | NUR ---
Significant Event: Patient is alert and oriented x 3. Denies pain, numbness, or tingling. Moves spontaneously and follows commands with equal strength. PERRAL. Denied chest pain or SOB this shift. Did have some indigestion-Protonix ordered and some relief noted. No edema. VSS. On room air. Lungs clear. Up ad oma in room. Bowel sounds active. No BM this shift. Voiding without complications. Bruising to right flank. Cardiac diet, low salt with good appetite. Sore to inside of right cheek--water swishes and magic mouth wash. PICC to right upper arm SL with no complications and good blood return. Currently undergoing radiation. Pleasant and cooperative with cares. Follow up: life vest fitting, discharge today
--- NOTE | 2017-06-14 14:50 | NUR ---
Significant Event: a/o x 3. c/o headache with initial assessment. PRN tylenol with stated relief and no further c/o pain. being fitted for a lifevest at this time. did leave [facility] this morning for about 30 minutes and had radiation at the cancer center. up ad oma in room. takes meds whole. cardiac/ low sodium diet. Single lumen PICC to RUE flushes with good blood return. Dr. Fernandes did fill out discharge orders. Dr. Garretttious to see between 5:30 and 6pm today and patient is to be discharged to home after.
--- NOTE | 2017-06-14 16:19 | NUR ---
Talked with Christopher and let her know that I brought up her medications for her from the [facility] clinic from . Left them at her bedside with her to take home upon dismissal. Poli with [employer] was there and was working in paperwork to get her fitted with a Lifevest today so she could dismiss. Christopher states that she will call Angela and check in on the Medicaid mariama. and reapplying for it or amending it if they can. No other questions, needs or concerns. I visited with about discharge medications and asked that he make sure they were all low cost to her as she didn't have insurance and would have to pay out of pocket. HE says he will keep this in mind when writting her dismissal medications. CM to continue to follow and assist.
[2017-06-14] MEDS ORDERED: COREG 3.1253.125 MG PO (16:31)
[2017-06-14] MEDS ORDERED: LANOXIN (DIGI250 MCG PO (16:32)
[2017-06-14] MEDS ORDERED: CORLANOR5 MG PO (16:35)
[2017-06-14] MEDS ORDERED: NICODERM / HABIT7 MG TOP (16:36)
[2017-06-14] MEDS ORDERED: PROTONIX40 MG PO (16:37)
[2017-06-14] MEDS ORDERED: LIPITOR40 MG PO (16:40)
[2017-06-14] MEDS ORDERED: ASPIRIN EC81 MG PO (16:42)
== END 2017-06-14 17:52 | disposition disaster alternative care site (69) | DRG 280 ==
LOC: GMED 16:36 → GPCU 20:10 → GICU 20:10 → GPCU 20:48 → GICU 06-09 14:53
PROVIDERS: Internal Medicine; Physician Assistant Medical; ADMIT Internal Medicine Cardiovascular Disease
PROC: B211YZZ Fluoroscopy of Multiple Coronary Arteries using Other Contrast (ICD-10-PCS; principal; 2017-06-08)
PROC: 4A023N7 Measurement of Cardiac Sampling and Pressure, Left Heart, Percutaneous Approach (ICD-10-PCS; principal; 2017-06-08)
DX: I21.4 Non-ST elevation (NSTEMI) myocardial infarction (principal); I50.21 Acute systolic (congestive) heart failure; I95.9 Hypotension, unspecified; I42.8 Other cardiomyopathies; C20 Malignant neoplasm of rectum; I11.0 Hypertensive heart disease with heart failure; K92.1 Melena; F19.20 Other psychoactive substance dependence, uncomplicated; F41.8 Other specified anxiety disorders; F17.210 Nicotine dependence, cigarettes, uncomplicated; L20.9 Atopic dermatitis, unspecified; N28.9 Disorder of kidney and ureter, unspecified; K42.9 Umbilical hernia without obstruction or gangrene; Z92.21 Personal history of antineoplastic chemotherapy; Z92.3 Personal history of irradiation
CPT/HCPCS: C1894; C8929; J1160; J1200; J1265; J1644; J1650; J2250; J2370; J2405; J3010; J7030; J7040; J7060; Q0164; Q9957; Q9967

== ENCOUNTER → 2017-06-21 | Outpatient (CLI) | payer MEDICAID ==
[~2017-06-21] MED LIST: ASPIRIN EC81 MG PO; COMPAZINE10 MG PO; COREG 3.1253.125 MG PO; CORLANOR5 MG PO; LANOXIN (DIGI250 MCG PO; LIPITOR40 MG PO; NICODERM / HABIT7 MG TOP; PROTONIX40 MG PO; [UNRECOGNIZED DRUG - OTHER]
[2017-06-21 17:30] LABS: CPK 39 IU/L (21-215)
== END ==
LOC: LNHI 16:54
PROVIDERS: Internal Medicine Cardiovascular Disease
DX: I42.8 Other cardiomyopathies (principal)

== ENCOUNTER → 2017-06-28 | Outpatient (CLI) | payer MEDICAID ==
--- NOTE | ~2017-06-28 | ECHO ---
Transthoracic Echocardiography Report (TTE) Demographics Patient Name LIS FUNEZ Date of Study 06/28/2017 Y Patient Number [id number] Visit Number [id number] Date of 1975 Room Number Gender Female Number Age 41 year(s) Referring Justin Dixon MD Tankage Grinder Nan Steve, Physician RT,RVT,RDCS Physician Interpreting Neto Gudino Funeral Director/Embalmer/Owner Physician Silvano MCMAHAN Supervising Ordering Justin Dixon MD, MD/P Physician Nurse Stress Supervisor [employer] Conclusions Contractility Score Summary Normal Left Ventricular contractility was noted. Summary The estimated left ventricular ejection fraction is 60-65%. Procedure Type of Study TTE procedure:Echo Limited w/o Contrast. Procedure Date Date: 06/28/2017 Start: 11:08 AM Study Location: Echo Lab Technical Quality: Good visualization Indications:High Risk Medication Use. Appropriate Use Criteria: 9 Patient Status: Routine HR: 75 bpm BP: 119/60 mmHg Allergies - No known allergies. M-Mode/2D Measurements LV Diastolic Dimension: 4.27 cm LV Systolic Dimension: 2.83 cm LV Septum Diastolic: 1.22 cm LV Septum Systolic: 1.47 cm LV PW Diastolic: 1.05 cm LV PW Systolic: 1.32 cm EF Estimated: 62 % Findings Left Ventricle Mild concentric left ventricular hypertrophy. Pericardial Effusion No pericardial effusion. Contractility Score LV regional wall motion:(0-Non visualized 1-Normal 2-Hypokinesis 3-Akinesis 4-Dyskinesis 5-Aneurysm) Signature dtt: Jony Duque dtd: 06/28/17 1108 Physician Self Edit
== END | disposition disaster alternative care site (69) ==
LOC: GCAR 10:42
DX: T50.901D Poisoning by unspecified drugs, medicaments and biological substances, accidental (unintentional), subsequent encounter (principal); I42.7 Cardiomyopathy due to drug and external agent; C21.8 Malignant neoplasm of overlapping sites of rectum, anus and anal canal; K59.09 Other constipation

== ENCOUNTER → 2017-07-07 | Outpatient (CLI) | payer MEDICAID | LOC: LNHI 16:42 | DX: I50.22 Chronic systolic (congestive) heart failure (principal) ==